=== PATIENT | male | born 1970 | race Caucasian/White ===

== ENCOUNTER 2018-07-12 15:16 | Emergency (ER) | payer MEDICAID, OTHER ==
[2018-07-12] MEDS ORDERED: LORAZEPAM 2 MG INJ (15:20)
[2018-07-12] MEDS ORDERED: HALOPERIDOL 5 MG INJ (15:20)
[2018-07-12] MEDS: HALOPERIDOL 5 MG INJ IM (15:26)
[2018-07-12] MEDS: LORAZEPAM 2 MG INJ IM (15:26)
[2018-07-12] MEDS: DIPHENHYDRAMINE 50 MG INJ IM (15:30)
[2018-07-12 15:42] LABS: ADD MAN DIFF? NO
[2018-07-12 15:47] LABS: BASOPHILS % 0.3 % (0.0-2.0); EOSINOPHILS % 0.1 % (0.0-7.0); HEMATOCRIT 42.5 % (42.0-52.0); HEMOGLOBIN 15.2 g/dl (14.0-18.0); LYMPHOCYTES # 1.1 10^3/ul (0.8-2.9); MEAN CORPUSCULAR HEMOGLOBIN 30.3 pg (29.0-33.0); MEAN CORPUSCULAR HGB CONC 35.8 g/dl (32.0-37.0); MEAN CORPUSCULAR VOLUME 84.8 fl (82.0-101.0); MEAN PLATELET VOLUME 8.7 fl (7.4-10.4); MONOCYTE # 0.6 10^3/ul (0.3-0.9); MONOCYTES % 8.3 % (0.0-11.0); NEUTROPHIL # 5.5 10^3/ul (1.6-7.5); PLATELET COUNT 354 10^3/UL (140-415); RED BLOOD COUNT 5.01 10^6/ul (4.70-6.10); RED CELL DISTRIBUTION WIDTH 12.7 % (11.5-14.5)
[2018-07-12 15:47] LABS: WHITE BLOOD COUNT 7.3 10^3/ul (4.8-10.8)
[2018-07-12 16:02] LABS: INR 0.94; PROTIME 12.7 Sec (11.9-14.9)
[2018-07-12 16:06] LABS: ACETAMINOPHEN < 10.0 ug/ml (10.0-30.0); ALANINE AMINOTRANSFERASE 39 IU/L (13-69); ALBUMIN 4.5 g/dl (3.3-4.9); ALBUMIN/GLOBULIN RATIO 1.28; ALKALINE PHOSPHATASE 90 IU/L (42-121); ANION GAP 18 (5-13); ASPARTATE AMINO TRANSFERASE 40 IU/L (15-46); BILIRUBIN,INDIRECT 0.7 mg/dl (0-1.1); BILIRUBIN,TOTAL 0.7 mg/dl (0.2-1.3); BLOOD UREA NITROGEN 18 mg/dl (7-20); CALCIUM 9.1 mg/dl (8.4-10.2); CARBON DIOXIDE 18 mmol/L (21-31); CHLORIDE 104 mmol/L (97-110); CREATININE 0.82 mg/dl (0.61-1.24); ETHANOL < 10.0 mg/dl (0-0); Estimated GFR > 60 mL/min (>60); GLUCOSE 130 mg/dl (70-220); POTASSIUM 3.2 mmol/L (3.5-5.1); SALICYLATE < 1.0 mg/dl (5.0-30.0); SODIUM 140 mmol/L (135-144)
[2018-07-12 16:07] LABS: ADD UMIC YES; UR ASCORBIC ACID NEGATIVE (NEGATIVE); UR BILIRUBIN (Dip) NEGATIVE (NEGATIVE); UR BLOOD (Dip) 2+ mg/dL (NEGATIVE); UR CLARITY SLIGHTLY CLOUDY (CLEAR); UR COLOR AMBER (YELLOW); UR GLUCOSE (Dip) NEGATIVE (NEGATIVE); UR HYALINE CAST FEW /HPF (NONE SEEN); UR KETONES (Dip) TRACE mg/dL (NEGATIVE); UR LEUKOCYTE ESTERASE (Dip) TRACE Leu/ul (NEGATIVE); UR MUCUS MANY /HPF (NONE SEEN); UR NITRITE (Dip) NEGATIVE (NEGATIVE); UR RBC > 182 /HPF (0-5); UR SPECIFIC GRAVITY (Dip) 1.028 (1.003-1.030); UR TOTAL PROTEIN (Dip) 1+ mg/dl (NEGATIVE); UR UROBILINOGEN (Dip) 1+ mg/dL (NEGATIVE); UR WBC 14 /HPF (0-5)
[2018-07-12 16:16] LABS: BARBITURATES Negative (NEGATIVE); BENZODIAZEPINES Positive (NEGATIVE); CANNABINOIDS Positive (NEGATIVE); COCAINE Negative (NEGATIVE); OPIATES Negative (NEGATIVE)
[2018-07-12 16:17] LABS: AMPHETAMINE/METHAMPHETAMINE POSITIVE (NEGATIVE)
== END 2018-07-13 07:30 | disposition home or self-care (01) ==
LOC: E/R 15:16
DX: T51.94XA Toxic effect of unspecified alcohol, undetermined, initial encounter (principal); G92 Toxic encephalopathy
CPT/HCPCS: 70450; 80053; 80307; 81001; 85025; 85610; 85730; 96372; 99285-25